=== PATIENT | male | born 1985 | race Caucasian/White ===

== ENCOUNTER 2022-04-18 10:18 | Outpatient (REF) | payer OTHER, SELFPAY ==
[2022-04-18 10:26] LABS: MANUAL DIFF FLAG NO
[2022-04-18 11:12] LABS: Basophils Absolute Auto 0.1 X10*3/uL (0.0-0.2); Basophils Percent Auto 0.7 % (0-2); Eosinophils Absolute Auto 0.3 X10*3/uL (0.0-0.4); Hematocrit 45.1 % (42.0-52.0); Hemoglobin 15.1 g/dl (14.0-18.0); Imm Gran Abs Auto 0.02 X10*3/uL (0.00-0.03); Imm Gran Pct Auto 0.3 % (0.0-0.4); Lymphocytes Absolute Auto 2.4 X10*3/uL (1.2-4.9); Lymphocytes Percent Auto 34.7 % (20-40); Mean Corpuscular HGB Conc 33.5 g/dl (31.0-36.0); Mean Corpuscular Hemoglobin 29.4 pg (27.0-33.0); Mean Corpuscular Volume 87.9 fL (80.0-98.0); Monocytes Absolute Auto 0.4 X10*3/uL (0.1-1.2); Monocytes Percent Auto 5.1 % (2-11); Neutrophils Absolute Auto 3.8 x10*3/uL (2.0-8.3); Neutrophils Percent Auto 55.2 % (45-73); Platelet Count 280 X10*3/uL (160-400); Red Blood Count 5.13 X10*6/uL (4.60-5.80); Red Cell Distribution Width 12.2 % (11.0-16.0); White Blood Count 6.8 X10*3/uL (4.8-10.8)
[2022-04-18 12:39] LABS: Alanine Aminotransferase 75 U/L (0-40); Albumin Level 4.5 g/dL (3.5-5.0); Alkaline Phosphatase 94 U/L (39-117); Anion Gap 12 (12-20); Aspartate Amino Transferase 31 U/L (5-37); Bilirubin Total 0.3 mg/dL (0.0-1.0); Blood Urea Nitrogen 13 mg/dL (9-16); Calcium 9.5 mg/dL (8.4-10.2); Carbon Dioxide 26 mmol/L (22-29); Chloride 107 mmol/L (96-108); Cholesterol 260 mg/dL; Estimated Glomerular Filt Rate > 60; Glucose Fasting 102 mg/dL (60-99); HDL Cholesterol 30 mg/dL; LDL Cholesterol Calculated 159 mg/dl; Potassium 4.2 mmol/L (3.3-5.1); Sodium 141 mmol/L (135-145); Total Protein 7.4 g/dL (6.5-8.0); Triglycerides 358 mg/dL
[2022-04-18 12:51] LABS: Folate 6.4 ng/mL (> or = 4.0); TSH reflex Free T4 0.99 uIU/mL (0.32-4.0); Vitamin B12 514 pg/mL (200-900); Vitamin D 25-OH Total 13.3 ng/mL (>30)
== END 2022-04-18 10:19 | disposition home or self-care (01) ==
LOC: HO.LAB 10:18
PROVIDERS: PCP Nurse Practitioner Family; Visit Provider Nurse Practitioner Family
DX: Z76.89 Persons encountering health services in other specified circumstances (principal)
CPT/HCPCS: 36415; 80053; 80061; 82306; 82607; 82746; 84443; 85025

== ENCOUNTER 2022-05-14 13:42 | Outpatient (REF) | payer OTHER, SELFPAY ==
[2022-05-14 14:37] LABS: Estimated Average Glucose 117 mg/dL; Hemoglobin A1c % 5.7 %
[2022-05-14 14:51] LABS: Alanine Aminotransferase 26 U/L (0-40); Albumin Level 4.4 g/dL (3.5-5.0); Alkaline Phosphatase 82 U/L (39-117); Aspartate Amino Transferase 24 U/L (5-37); Bilirubin Direct < 0.2 mg/dL (0.0-0.5); Bilirubin Total 0.2 mg/dL (0.0-1.0); Total Protein 7.5 g/dL (6.5-8.0)
== END 2022-05-14 13:43 | disposition home or self-care (01) ==
LOC: HO.LAB 13:42
PROVIDERS: PCP Nurse Practitioner Family; Visit Provider Nurse Practitioner Family
DX: R79.89 Other specified abnormal findings of blood chemistry (principal); R73.01 Impaired fasting glucose
CPT/HCPCS: 36415; 80076; 83036

== ENCOUNTER 2022-10-01 09:31 | Outpatient (AMB) | payer OTHER, SELFPAY ==
[2022-10-01 09:32] VITALS: BP 132/86; PULSE 67; O2SAT 100; BMI 26.0
--- NOTE | 2022-10-01 09:32 | A.OFFPC_ITS ---
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 Medical history significant for neck pain, back pain, elevated LFTs, high triglycerides, elevated fasting glucose. Patient denies burning with urination, no blood in urine, denies STI exposure, denies penile discharge. Reports that he has to urinate 3-5 times per 1 hour. He denies fever or chills, no nausea or vomiting. Denies polydipsia or polyphagia. [facility] Surgical History No pertinent past surgical history Family History Mother Diabetes Hypertension Father Hypertension Social History Housing: House Patient Tobacco Use Status: Never used Tobacco service: No Current occupational status: employed Cognitive needs: No Hearing needs: No Vision needs: No Questionnaire PHQ-9 Over the last 2 weeks, how often have you been bothered by any of the following problems? 1. Little interest or pleasure in doing things: not at all 2. Feeling down, depressed, or hopeless: not at all 3. Trouble falling or staying asleep, or sleeping too much: not at all 4. Feeling tired or having little energy: not at all 5. Poor appetite or overeating: not at all 6. Feeling bad about yourself - or that you are a failure or have let yourself or your family down: not at all 7. Trouble concentrating on things, such as reading the newspaper or watching television: not at all 8. Moving or speaking so slowly that other people could have noticed. Or the opposite - being so fidgety or restless that you have been moving around a lot more than usual: not at all 9. Thoughts that you would be better off or of hurting yourself in some way: not at all Total score: 0 Depression Screening Interpretation: Negative [id number] - PHQ-9 Billing: Yes Source: Developed by Drs. Jaswinder Chowdhury, Esperanza Hernandez, Иван Rodriguez and colleagues, with an educational reid from [employer]. Thrive Questionnaire Date Thrive assessed: 10/01/22 I am a: Patient What is your living situation today?: I have a steady place to live Within the past 12 months, did the food you bought not last and you didn't have the money to get more?: Never true Within the past 12 months, did you worry whether your food would run out before you got money to buy more?: Never true Currently or been in a relationship where the following occur: no concerns reported AUDIT C Alcohol Use Questionnaire (AUDIT-C) 1. How often do you have a drink containing alcohol?: Never 3. How often do you have six or more drinks on one occasion?: Never Total Score: 0 Score Reviewed/Action Taken: No MARIE-7 AMB Questionnaire MARIE-7 Date MARIE - 7 assessed: 02/17/22 Source: Developed by Drs. Jaswinder Chowdhury, Esperanza Hernandez, Иван Rodriguez and colleagues, with an educational reid from [employer]. Review of Systems Const Denies body aches, Denies chills, Denies fever(s) and Denies headache(s) Eyes Denies change in vision ENT Denies dizziness, Denies otalgia, Denies headache(s), Denies nasal discharge, Denies sinus pain and Denies sore throat Card Denies chest pain, Denies edema, Denies lightheadedness and Denies dyspnea Resp Denies cough, Denies dyspnea and Denies wheezing GI Denies abdominal pain, Denies constipation, Denies diarrhea, Denies nausea and Denies vomiting Denies hematuria, Denies difficulty urinating, Denies dysuria, Denies flank pain and Reports urinary frequency Musc Denies myalgias Skin/Breast Denies rash Neuro Denies dizziness and Denies headache(s) Aller/Immun Denies wheezing Physical exam (Primary Care) Vital Signs: Last Vital Signs Pulse 67 10/01/22 09:32 BP 132/86 10/01/22 09:32 Pulse Ox 100 10/01/22 09:32 Oxygen Delivery Method Room Air 10/01/22 09:32 BMI result Body Mass Index 26.0 Tobacco/Smoking Status: Tobacco use Status Tobacco use date assessed 10/01/22 10/01/22 09:33 Patient Tobacco Use Status Never used Tobacco 10/01/22 09:33 PHQ-9: PHQ-9 Score PHQ-9: Total score 0 10/01/22 09:48 Depression Screening Interpretation: Negative Thrive Assessment: Date of Thrive Assessment Date Thrive assessed 10/01/22 10/01/22 09:33 Currently or been in a relationship where the following occur: no concerns reported Const General: cooperative and no acute distress Orientation/consciousness: patient oriented x3 HENMT Head: Yes normocephalic and Yes atraumatic Mouth: oropharynx normal and moist mucous membranes Throat: Yes posterior oropharynx normal Eyes General: appearance normal, both eyes and all related structures Neck Neck: Yes normal visual inspection and Yes full ROM Resp Effort & Inspection: normal respiratory effort and able to speak in complete sentences Auscultation: clear to auscultation bilaterally, no crackles, no rales, no rhonchi and no wheezes Cardio Rate: regular rate Rhythm: regular rhythm Heart sounds: S1 normal heart sound present and S2 normal heart sound present GI Palpation (GI): Soft to palpation, not firm, nontender, no guarding, not rigid and no hepatosplenomegaly Auscultation: normal bowel sounds General: No CVA tenderness Back/Spine/Pelvis Back: No CVA tenderness Skin General skin exam: no rashes or lesions noted Neuro General: patient oriented x3 Gait exam (Neuro): Normal gait present Extrem General: Yes full ROM and No edema Results AMB Hemoglobin A1c AMB Hemoglobin A1c 5.8 % Last Edit by ELISE Canada on 10/01/22 09:57 AMB Urinalysis, Automated UA Leukoctes 0 Addie/uL Last Edit by ELISE Canada on 10/01/22 09:58 UA Nitrite Negative Last Edit by ELISE Canada on 10/01/22 09:58 UA Urobilinogen 0.2 mg/dL Last Edit by ELISE Canada on 10/01/22 09:58 UA Protein 15 mg/dL Last Edit by ELISE Canada on 10/01/22 09:58 UA pH 6.0 Last Edit by ELISE Canada on 10/01/22 09:58 UA Blood 0 Andrea/uL Last Edit by Eve Alvarez Dave on 10/01/22 09:58 UA Specific [place] 1.030 Last Edit by ELISE Canada on 10/01/22 09:58 UA Ketone Negative Last Edit by ELISE Canada on 10/01/22 09:58 UA Bilirubin 0 mg/dL Last Edit by ELISE Canada on 10/01/22 09:58 UA Glucose 100 mg/dL Last Edit by Eve Alvarez Dave on 10/01/22 09:58 Results Reviewed Results Reviewed: Laboratory Last Values Hgb A1c (Clinic) 5.8 % (4.0-6.0) 10/01/22 09:55 Urine pH (Auto) 6.0 10/01/22 09:55 Specific [place] (Auto) 1.030 10/01/22 09:55 Urine Protein (Auto) 15 mg/dL 10/01/22 09:55 Glucose (UA)(Auto) 100 mg/dL 10/01/22 09:55 Urine Ketones (Auto) Negative 10/01/22 09:55 Urine Blood (Auto) 0 Andrea/uL 10/01/22 09:55 Urine Nitrite (Auto) Negative 10/01/22 09:55 Urine Bilirubin (Auto) 0 mg/dL 10/01/22 09:55 Urine Urobilinogen (Auto) 0.2 mg/dL 10/01/22 09:55 Leukocyte Esterase (Auto) 0 Addie/uL 10/01/22 09:55 Assessment and Plan Assessment & Plan (1) Urinary frequency: Code(s): R35.0 - Frequency of micturition Plan: Urinalysis in the office showed protein and glucose, will send urine for culture, if positive for UTI will treat. Most likely urinary frequency related to elevated A1c which shows prediabetes, encouraged low-carbohydrate diet. Signs and symptoms reviewed when to notify provider or go to the emergency department. Patient agreed with the plan. (2) Pre-diabetes: Code(s): R73.03 - Prediabetes Plan: A1c 5.8 today, encouraged low-carbohydrate diet Continue to monitor Orders: Orders Urine Culture Today R35.0 - Frequency of micturition AMB Hemoglobin A1c Today Z13.9 - Encounter for screening, unspecified AMB Urinalysis Automated Today R35.0 - Frequency of micturition Coding Level of Care Code Est Pt Level 3 (82375) Diagnoses Urinary frequency R35.0 Pre-diabetes R73.03
== END 2022-10-01 10:01 | disposition home or self-care (01) ==
LOC: HO.HMGH 09:31
PROVIDERS: PCP Nurse Practitioner Family; Visit Provider Nurse Practitioner Family
DX: R35.0 Frequency of micturition (principal); R73.03 Prediabetes; Z13.9 Encounter for screening, unspecified
CPT/HCPCS: 81003; 83036; 99213

== ENCOUNTER 2022-10-01 09:51 | Outpatient (REF) | payer OTHER, SELFPAY | END 2022-10-01 09:52 | disposition home or self-care (01) | LOC: HO.LAB 09:51 | PROVIDERS: PCP Nurse Practitioner Family; Visit Provider Nurse Practitioner Family | DX: R35.0 Frequency of micturition (principal) | CPT/HCPCS: 87086 ==